=== PATIENT | female | born 1980 | race American Indian/Alaskan Native ===

== ENCOUNTER 2019-10-06 08:33 | Outpatient (CLI) | payer BC ==
[2019-10-06 08:48] LABS: Basophils # (Auto) 0.1 K/mm3 (0.0-0.1); Basophils % (Auto) 1.3 % (0.0-1.8); Eosinophils # (Auto) 0.4 K/mm3 (0.0-0.4); Eosinophils % (Auto) 6.7 % (0.0-4.3); Hematocrit 36.8 % (30.3-42.9); Hemoglobin 12.1 gm/dl (10.1-14.3); Lymphocytes # (Auto) 2.1 K/mm3 (1.2-5.4); Lymphocytes % (Auto) 33.8 % (13.4-35.0); Mean Corpuscular HGB Conc 33 % (30-34); Mean Corpuscular Volume 94 fl (79-97); Monocytes # (Auto) 0.5 K/mm3 (0.0-0.8); Monocytes % (Auto) 8.7 % (0.0-7.3); Platelet Count 339 K/mm3 (140-440); Red Blood Count 3.92 M/mm3 (3.65-5.03); Red Cell Distribution Width 12.6 % (13.2-15.2)
[2019-10-06 09:13] LABS: Alanine Aminotransferase 49 units/L (7-56); Albumin 3.7 g/dL (3.9-5); BUN/Creatinine Ratio 15; Blood Urea Nitrogen 17 mg/dL (7-17); Calcium 8.6 mg/dL (8.4-10.2); Hemolysis Index 7; LDL Cholesterol,Direct 140 mg/dL (50-130)
[2019-10-06 10:04] LABS: Chol/HDL Ratio 3.13 %; HDL Cholesterol 67 mg/dL (40-59)
== END 2019-10-06 08:34 | disposition home or self-care (01) ==
LOC: LAB 08:33
PROVIDERS: ATTEND Internal Medicine
DX: I10 Essential (primary) hypertension (principal); E78.2 Mixed hyperlipidemia; L83 Acanthosis nigricans; M79.2 Neuralgia and neuritis, unspecified
CPT/HCPCS: 36415; 80053; 80061; 80156; 83036; 85025

== ENCOUNTER 2019-12-07 12:54 | Outpatient (CLI) | payer BC | END 2019-12-07 12:55 | disposition home or self-care (01) | LOC: SPVWC 12:54 | PROVIDERS: ATTEND Nurse Practitioner Family | DX: R92.8 Other abnormal and inconclusive findings on diagnostic imaging of breast (principal) | CPT/HCPCS: 77066 ==

== ENCOUNTER 2020-01-10 12:09 | Outpatient (CLI) | payer BC ==
--- NOTE | 2020-01-10 13:35 | XRay Report ---
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 FINDINGS: BONES / JOINT(S): No acute fracture or subluxation. Mild DDD is greatest at L3-L4. SOFT TISSUES: IUD noted. ADDITIONAL FINDINGS: None. Signer Name: Ramana Arcos MD Signed: 01/10/2020 1:30 PM Workstation Name: [id number]
== END 2020-01-10 12:10 | disposition home or self-care (01) ==
LOC: XRAY 12:09
PROVIDERS: ATTEND Internal Medicine
DX: M51.36 Other intervertebral disc degeneration, lumbar region (principal); M54.32 Sciatica, left side
CPT/HCPCS: 72100

== ENCOUNTER 2020-01-12 08:40 | Outpatient (CLI) | payer BC ==
--- NOTE | 2020-01-12 12:21 | Ultrasound Report ---
RIGHT BREAST ULTRASOUND HISTORY: Follow-up 3 cm right breast mass. [facility] reported a 2.4 x 2.1 x 1.0 right breast mass at 11:00 7 cm from the nipple on 02/12/2019 COMPARISON: 12/07/2019 mammogram demonstrating a stable 3 cm right outer breast mass and a comparison [facility] ultrasound from 02/12/2019.. FINDINGS: Sonographic evaluation focused upon the outer location of the right breast demonstrates an oval relatively smooth solid hypoechoic mass at 8:00 9 cm from the nipple. It measures 1.8 x 0.9 x 1. 7 cm. I am not certain that this correlates with the mass identified at [facility] since the surrounding tissue looks somewhat different and the clock position is different. However, the technologist could not locate any other mass. IMPRESSION: A probably benign right breast mass at 8:00 9 cm from the nipple measuring 1.8 cm. Recommend 6 month follow-up right mammogram and right breast ultrasound to reevaluate the mammographic mass and this ul trasound mass. Six-month follow-up right mammogram and right breast ultrasound. BIRADS 3: Probably benign. Signer Name: Landen Cline MD Signed: 01/12/2020 12:17 PM Workstation Name: [id number]
== END 2020-01-12 08:41 | disposition home or self-care (01) ==
LOC: US 08:40
PROVIDERS: ATTEND Nurse Practitioner Family
DX: R92.8 Other abnormal and inconclusive findings on diagnostic imaging of breast (principal)

== ENCOUNTER 2020-05-08 08:24 | Outpatient (CLI) | payer BC ==
[2020-05-08 09:09] LABS: Alanine Aminotransferase 15 units/L (7-56); Albumin 3.9 g/dL (3.9-5); BUN/Creatinine Ratio 17; Blood Urea Nitrogen 19 mg/dL (7-17); Calcium 8.9 mg/dL (8.4-10.2); Chol/HDL Ratio 3.33 %; HDL Cholesterol 71 mg/dL (40-59); Hemolysis Index 19; LDL Cholesterol,Direct 162 mg/dL (50-130)
== END 2020-05-08 08:25 | disposition home or self-care (01) ==
LOC: LAB 08:24
PROVIDERS: ATTEND Nurse Practitioner Family
DX: I10 Essential (primary) hypertension (principal); E78.2 Mixed hyperlipidemia; Z86.69 Personal history of other diseases of the nervous system and sense organs
CPT/HCPCS: 36415; 80053; 80061; 80156

== ENCOUNTER 2020-10-03 12:41 | Outpatient (CLI) | payer BC ==
--- NOTE | 2020-10-03 14:50 | Mammography Report ---
RIGHT DIGITAL DIAGNOSTIC MAMMOGRAM WITH CAD CONVENTIONAL, 10/03/2020 RIGHT LIMITED BREAST ULTRASOUND CLINICAL INFORMATION / INDICATION: Short-term follow-up right breast nodule. ABNORMAL MAMMO TECHNIQUE: Digital right mammographic imaging was performed. Spot compression views were obtained. [facility]. This examination was interpreted with the benefit of Computer-Aided D etection (CAD) analysis. COMPARISON: Bilateral mammography 12/07/19 and diagnostic right breast mammogram 02/12/19. FINDINGS: Breast Density: There are scattered areas of fibroglandular density. MAMMOGRAPHIC FINDINGS: The previously described well-circumscribed 3.2 cm ovoid nodule in the right l ateral breast posteriorly is stable. There is a 2.3 cm poorly defined ovoid focal asymmetric density in the right upper outer quadrant posteriorly which appears slightly larger or is better seen. ULTRASOUND FINDINGS: Targeted ultrasound evaluation was performed of the area of interest. The prev iously described nodule at the 8:00 position seen on right breast ultrasound from 01/20/20 is not char ntified. I do not identify a sonographic correlate for the stable 3.2 cm nodule in the right lateral breast (which is presumably solid). On today's study there is a 1.8 cm ovoid complex solid lesion at the 10:00 position 18 cm from the ni pple. This corresponds to the 2.3 cm poorly defined focal asymmetric density in the right upper outer quadrant seen on today's mammogram (confirmed with spot compression views with a skin marker placed at ultrasound). The lesion is hypoechoic centrally and has a hyperechoic rim. Posterior shadowing is present. There is increased vascularity peripherally. No other abnormality is seen. IMPRESSION: 1. 3.2 cm nodule in the lateral right breast seen mammographically is stable and probably benign. No sonographic correlate is seen. 2. 1.8 to 2.3 cm complex solid lesion at the 10:00 position in the right breast appears larger mammog raphically and was not seen on prior ultrasound. Biopsy is recommended. Follow up recommendation: Biopsy BI-RADS Category 4: Suspicious for Malignancy. A "normal" or negative report should not discourage follow up or biopsy of a clinically significant f inding. A written summary of these findings will be mailed to the patient. The patient will be entered into a mammography reporting system which will generate a reminder letter for the patient's next appointmen t at the appropriate interval. According to the [employer], yearly mammograms are recommended starting at age 40 and continuing as long as a woman is in good health. Breast MRI is recommended for women with an tonya roximately 20-25% or greater lifetime risk of breast cancer, including women with a strong family his tory of breast or ovarian cancer and women who have been treated for Hodgkin's disease. Signer Name: Baron Feldman MD Signed: 10/03/2020 2:45 PM Workstation Name: [id number]
--- NOTE | 2020-10-03 14:50 | Ultrasound Report ---
Please see combined right diagnostic mammogram and right breast ultrasound report from the same date. Signer Name: Baron Feldman MD Signed: 10/03/2020 2:46 PM Workstation Name: [id number]
== END 2020-10-03 12:42 | disposition home or self-care (01) ==
LOC: SPVWC 12:41
PROVIDERS: ATTEND Obstetrics & Gynecology
DX: N63.13 Unspecified lump in the right breast, lower outer quadrant (principal); N64.9 Disorder of breast, unspecified

== ENCOUNTER 2020-10-18 12:16 | Outpatient (CLI) | payer BC ==
--- NOTE | 2020-10-18 14:36 | Mammography Report ---
ULTRASOUND GUIDED RIGHT BREAST BIOPSY, 10/18/2020 RIGHT DIAGNOSTIC MAMMOGRAM CLINICAL INFORMATION / INDICATION: POST US BX. Vague right breast nodule here for biopsy COMPARISON: Mammogram and ultrasound from 10/03/2020 PROCEDURE: Risks, benefits, and indications to the procedure were discussed with the patient in detail, includin g bleeding, infection, hematoma formation, and inadequate tissue sampling. The patient agreed to proc eed with both verbal and written consent. A timeout procedure was performed with two patient identifi ers. The breast was prepped and draped in the usual sterile fashion. Lidocaine 1% was used for local anest hesia. Under direct ultrasound guidance, 3 12-gauge vacuum-assisted core samples were obtained of the right breast nodule. A biopsy marker was then placed. Biopsy device was removed and hemostasis achi eved with manual pressure. A sterile dressing was applied to the skin. The patient tolerated the procedure without difficulty. No complications were encountered. Postbiopsy instructions were discussed with the patient and given in writing. Specimens were sent to pathology. The patient was then sent for a confirmatory mammogram to demonstrate adequate clip positioning in th e area in question. IMPRESSION: 1. Technically successful ultrasound guided right breast biopsy. 2. Satisfactory positioning of the biopsy clip on the post procedure mammogram. Biopsy results are pending and will be reported in an addendum. Signer Name: Arnold Arriola MD Signed: 10/18/2020 2:31 PM Workstation Name: [id number]
== END 2020-10-18 12:17 | disposition home or self-care (01) ==
LOC: US 12:16
PROVIDERS: ATTEND Surgery
DX: N63.11 Unspecified lump in the right breast, upper outer quadrant (principal); N64.89 Other specified disorders of breast
CPT/HCPCS: 88305

== ENCOUNTER 2021-04-05 08:22 | Outpatient (CLI) | payer BC ==
--- NOTE | 2021-04-05 10:56 | Mammography Report ---
BILATERAL DIGITAL DIAGNOSTIC MAMMOGRAM WITH CAD WITH TOMOSYNTHESIS, 04/05/2021 RIGHT LIMITED BREAST ULTRASOUND CLINICAL INFORMATION / INDICATION: This is a short-term follow-up right mammogram and ultrasound foll owing benign right breast biopsy. TECHNIQUE: Digital bilateral mammographic imaging was performed. Limited ultrasound was performed. Th is examination was interpreted with the benefit of Computer-Aided Detection (CAD) analysis. COMPARISON: Comparison is with multiple prior mammograms dating back to 02/12/2019 and multiple right breast ultrasounds dating back to 02/12/2019 FINDINGS: Breast Density: There are scattered areas of fibroglandular density. MAMMOGRAPHIC FINDINGS: Since the most recent mammogram of 10/03/2020, there has been interval ultrasoun d-guided biopsy of mass in the 10:00 position of the right breast. A biopsy clip is now visible withi n the mass. Overall appearance of the mass is stable. Additionally there remains a stable oval circum scribed mass in the 8:00 position of the right breast posterior depth measuring approximately 3.2 cm. Left breast is normal and stable in appearance. ULTRASOUND FINDINGS: Targeted ultrasound evaluation was performed of the area of interest. Sonograp hic evaluation of the right breast demonstrates persistent oval solid mass in the 8:00 location, 6 cm from nipple, measuring approximately 2.6 cm in greatest diameter. This is unchanged from multiple pr ior exams and is most consistent with a benign fibroadenoma. Additionally there remains a oval solid mass in the 10:00 position, 18 cm from nipple, measuring 1.5 x 0.6 x 1.1 cm. This is unchanged from prior ultrasound of 10/03/2020 and has been recently biopsied with findings cons istent with benign lesion, possibly hamartoma. IMPRESSION: No mammographic or sonographic evidence of malignancy. Follow up recommendation: Routine yearly BI-RADS Category 2: Benign. A "normal" or negative report should not discourage follow up or biopsy of a clinically significant f inding. A written summary of these findings will be mailed to the patient. The patient will be entered into a mammography reporting system which will generate a reminder letter for the patient's next appointmen t at the appropriate interval. According to the [employer], yearly mammograms are recommended starting at age 40 and continuing as long as a woman is in good health. Breast MRI is recommended for women with an tonya roximately 20-25% or greater lifetime risk of breast cancer, including women with a strong family his tory of breast or ovarian cancer and women who have been treated for Hodgkin's disease. Signer Name: Micaela Snow MD Signed: 04/05/2021 10:51 AM Workstation Name: [email or web address]
== END 2021-04-05 08:23 | disposition home or self-care (01) ==
LOC: SPVWC 08:22
PROVIDERS: ATTEND Surgery
DX: N63.11 Unspecified lump in the right breast, upper outer quadrant (principal); N63.13 Unspecified lump in the right breast, lower outer quadrant; R92.8 Other abnormal and inconclusive findings on diagnostic imaging of breast
CPT/HCPCS: 76642; 77066; G0279

== ENCOUNTER 2021-04-19 10:04 | Outpatient (CLI) | payer BC ==
[2021-04-19 10:42] LABS: Alanine Aminotransferase 22 units/L (7-56); BUN/Creatinine Ratio 17; Blood Urea Nitrogen 15 mg/dL (7-17); Calcium 9.6 mg/dL (8.4-10.2); Chol/HDL Ratio 3.73 %; HDL Cholesterol 61 mg/dL (40-59); Hemolysis Index 6; LDL Cholesterol,Direct 160 mg/dL (50-130)
== END 2021-04-19 10:05 | disposition home or self-care (01) ==
LOC: LAB 10:04
PROVIDERS: ATTEND Nurse Practitioner Family
DX: E78.2 Mixed hyperlipidemia (principal); I10 Essential (primary) hypertension; M79.2 Neuralgia and neuritis, unspecified
CPT/HCPCS: 36415; 80053; 80061; 80156

== ENCOUNTER 2021-06-11 13:55 | Outpatient (CLI) | payer BC ==
[2021-06-11 15:27] LABS: Basophils # (Auto) 0.1 K/mm3 (0.0-0.1); Basophils % (Auto) 1.7 % (0.0-1.8); Eosinophils # (Auto) 0.3 K/mm3 (0.0-0.4); Eosinophils % (Auto) 6.4 % (0.0-4.3); Hematocrit 41.5 % (30.3-42.9); Lymphocytes # (Auto) 1.8 K/mm3 (1.2-5.4); Lymphocytes % (Auto) 33.5 % (13.4-35.0); Mean Corpuscular HGB Conc 34 % (30-34); Mean Corpuscular Volume 96 fl (79-97); Monocytes # (Auto) 0.5 K/mm3 (0.0-0.8); Monocytes % (Auto) 8.8 % (0.0-7.3); Platelet Count 331 K/mm3 (140-440); Red Blood Count 4.34 M/mm3 (3.65-5.03); Red Cell Distribution Width 12.6 % (13.2-15.2)
[2021-06-11 16:36] LABS: Alanine Aminotransferase 22 units/L (7-56); Albumin 3.9 g/dL (3.9-5); BUN/Creatinine Ratio 14; Blood Urea Nitrogen 13 mg/dL (7-17); Calcium 9.3 mg/dL (8.4-10.2); Chol/HDL Ratio 3.26 %; HDL Cholesterol 69 mg/dL (40-59); Hemolysis Index 4; LDL Cholesterol,Direct 138 mg/dL (50-130)
[2021-06-15 14:43] LABS: Vitamin D, 25-OH, D2 <4 ng/mL
== END 2021-06-11 13:56 | disposition home or self-care (01) ==
LOC: LAB 13:55
PROVIDERS: ATTEND Nurse Practitioner Family
DX: Z00.00 Encounter for general adult medical examination without abnormal findings (principal)
CPT/HCPCS: 36415; 80053; 80061; 82306; 84443; 85025

== ENCOUNTER 2022-03-11 09:34 | Outpatient (CLI) | payer BC ==
--- NOTE | 2022-03-11 15:03 | Magnetic Resonance Report ---
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 TECHNIQUE: Multiplanar, multisequence MR images of the brain and cervical spine were obtained. COMPARISON: None available. FINDINGS: MRI BRAIN: There is a vessel which could be a branch from the superior cerebellar artery which approaches and co ntacts the superior medial aspect of the left mid cisternal segment of the trigeminal nerve. There is no displacement of the nerve. INTRACRANIAL: No restricted diffusion. No hemorrhage. Ventricular caliber is normal. No extra-axial c ollection. No mass. No herniation. Major intracranial vascular flow voids are preserved. Small quant ity of scattered supratentorial T2 signal white matter hyperintensities. ORBITS: No significant abnormality of visualized orbits. SINUSES / MASTOIDS: No significant abnormality of visualized sinuses and mastoid air cells. MRI CERVICAL: ALIGNMENT: Normal alignment. VERTEBRAE:No aggressive osseous marrow signal. Vertebral body heights are preserved. SPINAL CORD: No abnormal cord signal [id number] ANALYSIS: C2-C3: No significant spinal canal stenosis. No significant foraminal narrowing. C3-C4: Mild spondylitic ridging. No significant spinal canal stenosis. No significant foraminal narro wing. C4-C5: Mild spondylitic ridging. No significant spinal canal stenosis. No significant foraminal narro wing. C5-C6: Left central extrusion results in left cord flattening with effacement of ventral and dorsal C SF space. Moderate spinal canal stenosis. No significant foraminal narrowing. C6-C7: Mild spondylitic ridging. No significant spinal canal stenosis. No significant foraminal narro wing. C7-T1: No significant spinal canal stenosis. No significant foraminal narrowing. PARASPINAL SOFT TISSUES: No significant abnormality. ADDITIONAL FINDINGS: None. IMPRESSION: 1. Mild supratentorial white matter disease which is nonspecific but commonly seen in the setting of premature for age sequela of chronic microvascular disease or migrainous angiopathy. 2. A vessel contacts the superior aspect of the mid cisternal segment of the left trigeminal nerve bu t there is no displacement of the nerve. 3. Left central C5-C6 extrusion results in cord flattening with moderate spinal canal stenosis. Signer Name: Carson Travis MD Signed: 03/11/2022 2:58 PM Workstation Name: [id number]
== END 2022-03-11 09:35 | disposition home or self-care (01) ==
LOC: MRI 09:34
PROVIDERS: ATTEND Psychiatry & Neurology Neurology
DX: M48.02 Spinal stenosis, cervical region (principal); G50.0 Trigeminal neuralgia; M47.812 Spondylosis without myelopathy or radiculopathy, cervical region; R90.82 White matter disease, unspecified; M50.222 Other cervical disc displacement at C5-C6 level
CPT/HCPCS: 70551; 72141

== ENCOUNTER 2022-03-21 07:15 | Outpatient (CLI) | payer BC ==
--- NOTE | 2022-03-21 14:40 | Magnetic Resonance Report ---
MR lumbar spine wo con INDICATION / CLINICAL INFORMATION: 41 years Female; M54.42 LUMBAGO WITH SCIATICA, LEFT SIDE. TECHNIQUE: Multisequence, multiplanar images of the lumbar spine were obtained. COMPARISON: None available. FINDINGS: ALIGNMENT: Minimal listhesis seen at T11-12. VERTEBRAE:Grossly normal marrow signal and vertebral body height for age. VISUALIZED SPINAL CORD: No significant abnormality. Conus is grossly normal in appearance. INTERVERTEBRAL DISCS: Desiccation seen at L4-5 and L5-S1. NPLYM-CY-MNMNO ANALYSIS: L1-2: No significant abnormality. L2-3: No significant abnormality. L3-4: Minimal disc bulge. Mild facet hypertrophy. L4-5: Mild disc bulge and small posterocentral disc extrusion. Disc material seen extending to the in frapedicular level of L4. Mild to moderate facet hypertrophy on the left and mild on the right. Mild subarticular zone narrowing on the left with encroachment upon the left L5 nerve. No impingement. L5-S1: Mild disc bulge. Left subarticular zone/foraminal disc extrusion seen, with disc material exte nding to the pedicular level of L5. Mild to moderate facet hypertrophy. Mild to moderate foraminal na rrowing on the left and moderate on the right. There is encroachment upon L5 nerves without impingeme nt. PARASPINAL SOFT TISSUES: No significant abnormality. ADDITIONAL FINDINGS: None. IMPRESSION: 1. Degenerative changes of the lumbar spine as described above. Most marked findings appear to be at L5-S1 or L4-5. Signer Name: Hema Quintana MD, III Signed: 03/21/2022 2:36 PM Workstation Name: [email or web address]
== END 2022-03-21 07:16 | disposition home or self-care (01) ==
LOC: MRI 07:15
PROVIDERS: ATTEND Psychiatry & Neurology Neurology
DX: M47.816 Spondylosis without myelopathy or radiculopathy, lumbar region (principal); M51.26 Other intervertebral disc displacement, lumbar region
CPT/HCPCS: 72148

== ENCOUNTER 2022-05-02 09:43 | Outpatient (CLI) | payer BC ==
[2022-05-02 13:03] LABS: Alanine Aminotransferase 22 units/L (7-56); Albumin 4.3 g/dL (3.9-5); BUN/Creatinine Ratio 14; Blood Urea Nitrogen 14 mg/dL (7-17); HDL Cholesterol 68 mg/dL (40-59); Hemolysis Index 28; LDL Cholesterol,Direct 164 mg/dL (50-130)
== END 2022-05-02 09:44 | disposition home or self-care (01) ==
LOC: LAB 09:43
PROVIDERS: ATTEND Nurse Practitioner Family
DX: E78.2 Mixed hyperlipidemia (principal); I10 Essential (primary) hypertension; M79.2 Neuralgia and neuritis, unspecified
CPT/HCPCS: 36415; 80053; 80061; 80156